=== PATIENT | male | born 1945 | race Caucasian/White ===

== ENCOUNTER 2020-08-08 09:53 | Outpatient (CLI) | payer MEDICARE, BC ==
[2020-08-08 10:35] LABS: Hemoglobin 13.5 g/dL (13.5-17.5); Mean Corpuscular HGB CONC 33.1 g/dL (32.0-36.0); Mean Corpuscular Volume 87.7 fl (81.2-95.1); Mean Platelet Volume 10.7 fl (7.4-10.4); Platelet Count 160 10x3/uL (150-450); RBC Distribution Width 13.9 % (11.5-14.5); Red Blood Cell (RBC) Count 4.65 10x6/uL (4.32-5.72); White Blood Cell (WBC) Count 8.3 10x3/uL (3.5-10.5)
[2020-08-08 10:41] LABS: Prothrombin Time 10.9 sec (9.5-12.1)
[2020-08-08 11:35] LABS: Anion Gap 13 mmol/L (10-20); BUN (Urea Nitrogen) 23 mg/dL (8.4-25.7); Calc. Creatinine Clearance 0 mL/min (70-130); Calcium 8.7 mg/dL (7.8-10.44); Carbon Dioxide 22 mmol/L (23-31); Chloride 110 mmol/L (98-107); Glucose 101 mg/dL (83-110); Potassium 4.3 mmol/L (3.5-5.1); Sodium 141 mmol/L (136-145)
[2020-08-08 21:45] LABS: SARS-CoV-2 PCR by NAA Not Detected (NotDetected)
== END 2020-08-08 09:54 | disposition home or self-care (01) ==
LOC: LABBT 09:53
PROVIDERS: ATTEND Internal Medicine Cardiovascular Disease
DX: Z01.812 Encounter for preprocedural laboratory examination (principal); I48.19 Other persistent atrial fibrillation; Z20.822 Contact with and (suspected) exposure to COVID-19
CPT/HCPCS: 80048; 85027; 85610; U0003; U0005; 87635

== ENCOUNTER 2020-08-11 07:46 | Day surgery (SDC) | payer MEDICARE, BC ==
[2020-08-09 14:10] VITALS: BMI 34.5
[2020-08-11] MEDS ORDERED: Lidocaine 1% PF 5 ML VIAL ONE ×2 (08:21→08:30)
[2020-08-11] MEDS ORDERED: PROPOFOL 200 MG/20 ML VIAL ONE (08:30)
== END 2020-08-11 10:02 | disposition home or self-care (01) ==
LOC: CCL 07:46
PROVIDERS: ATTEND Internal Medicine Cardiovascular Disease
PROC: B246ZZ4 Ultrasonography of Right and Left Heart, Transesophageal (ICD-10-PCS; principal; 2020-08-11)
DX: I48.19 Other persistent atrial fibrillation (principal); I11.9 Hypertensive heart disease without heart failure; I25.10 Atherosclerotic heart disease of native coronary artery without angina pectoris; E78.5 Hyperlipidemia, unspecified; G47.33 Obstructive sleep apnea (adult) (pediatric); M19.90 Unspecified osteoarthritis, unspecified site; Z86.16 Personal history of COVID-19; Z87.891 Personal history of nicotine dependence; Z79.01 Long term (current) use of anticoagulants; Z79.82 Long term (current) use of aspirin; Z79.899 Other long term (current) drug therapy; Z95.1 Presence of aortocoronary bypass graft; Z95.818 Presence of other cardiac implants and grafts
CPT/HCPCS: 93312; J2704

== ENCOUNTER 2021-03-27 09:30 | Outpatient (CLI) | payer MEDICARE, BC ==
[2021-03-27 10:47] LABS: Mean Corpuscular HGB CONC 32.3 g/dL (32.0-36.0); Mean Corpuscular Hemoglobin 29.7 pg (27.0-33.0); Mean Corpuscular Volume 91.8 fl (81.2-95.1); Mean Platelet Volume 10.9 fl (7.4-10.4); Platelet Count 124 10x3/uL (150-450); RBC Distribution Width 13.3 % (11.5-14.5); Red Blood Cell (RBC) Count 4.04 10x6/uL (4.32-5.72); White Blood Cell (WBC) Count 6.6 10x3/uL (3.5-10.5)
[2021-03-27 10:53] LABS: Prothrombin Time 10.6 sec (9.5-12.1)
[2021-03-27 10:57] LABS: Anion Gap 10 mmol/L (10-20); BUN (Urea Nitrogen) 17 mg/dL (8.4-25.7); Calc. Creatinine Clearance 0 mL/min (70-130); Calcium 8.6 mg/dL (7.8-10.44); Carbon Dioxide 26 mmol/L (23-31); Chloride 111 mmol/L (98-107); Glucose 102 mg/dL (83-110); Potassium 4.3 mmol/L (3.5-5.1); Sodium 143 mmol/L (136-145)
[2021-03-27 19:45] LABS: SARS-CoV-2 PCR by NAA Not Detected (NotDetected)
== END 2021-03-27 09:31 | disposition home or self-care (01) ==
LOC: LABBT 09:30
PROVIDERS: ATTEND Internal Medicine Cardiovascular Disease
DX: Z01.812 Encounter for preprocedural laboratory examination (principal); I48.20 Chronic atrial fibrillation, unspecified; Z95.818 Presence of other cardiac implants and grafts; Z20.822 Contact with and (suspected) exposure to COVID-19
CPT/HCPCS: 80048; 85027; 85610; U0003; U0005

== ENCOUNTER 2021-03-30 07:32 | Day surgery (SDC) | payer MEDICARE, BC ==
[2021-03-23 13:35] VITALS: BMI 33.9
[2021-03-30] MEDS ORDERED: PROPOFOL 20 ML ONE (09:26)
== END 2021-03-30 10:33 | disposition home or self-care (01) ==
LOC: CCL 07:32
PROVIDERS: ATTEND Internal Medicine Cardiovascular Disease
PROC: B246ZZ4 Ultrasonography of Right and Left Heart, Transesophageal (ICD-10-PCS; principal; 2021-03-30)
DX: I48.91 Unspecified atrial fibrillation (principal); Q21.1 Atrial septal defect; I51.7 Cardiomegaly; Z79.82 Long term (current) use of aspirin; Z79.899 Other long term (current) drug therapy; Z88.8 Allergy status to other drugs, medicaments and biological substances; Z95.1 Presence of aortocoronary bypass graft; Z95.818 Presence of other cardiac implants and grafts
CPT/HCPCS: 93312; J2704